=== PATIENT | female | born 1995 | race African-American/Black ===

== ENCOUNTER 2023-08-20 22:47 | Emergency (ER) | payer SELFPAY ==
[~2023-08-20] VITALS: Ht 172.7 cm; Wt 51.0 kg
[2023-08-20 22:50] VITALS: BP 101/55; RESP 16; TEMP 98.4
[2023-08-20 22:55] VITALS: PULSE 83
[2023-08-20 23:32] LABS: CLARITY URINE SL HAZY (CLEAR); COLOR URINE YELLOW (YELLOW); SPECIFIC GRAVITY URINE 1.028 (1.005-1.030)
[2023-08-20 23:33] LABS: GLUCOSE URINE NEGATIVE (NEGATIVE); KETONES URINE TRACE (NEGATIVE); LEUKOCYTE ESTERASE URINE TRACE (NEGATIVE); NITRITE URINE NEGATIVE (NEGATIVE); OCCULT BLOOD URINE NEGATIVE (NEGATIVE); PROTEIN URINE NEGATIVE (NEGATIVE)
[2023-08-20 23:40] LABS: BACTERIA URINE TRACE; RBC URINE 0-2 /hpf (0-2); SQUAMOUS EPITHELIAL CELL URINE 1+ /lpf (RARE/1+); WBC URINE 0-2 /hpf (0-2)
[2023-08-20] MEDS ORDERED: DOXY100C5 MT (23:45)
[2023-08-20] MEDS ORDERED: MINE50OI TP (23:47)
[2023-08-21] MEDS: CEFTRIAXONE SODIUM 500MG VIAL IM ONE (00:25)
[2023-08-21] MEDS: LIDOCAINE HCL/PF 1% 10 MG/ML 5ML VIAL INFIL ONE (00:25)
[2023-08-22 14:13] LABS: CHLAMYDIA TRACHOMATIS NAA Negative (Negative); NEISSERIA GONORRHOEAE NAA Negative (Negative)
== END 2023-08-21 00:33 | disposition home or self-care (01) ==
LOC: ER 22:47
DX: Z20.2 Contact with and (suspected) exposure to infections with a predominantly sexual mode of transmission (principal); F41.9 Anxiety disorder, unspecified; F32.A Depression, unspecified
CPT/HCPCS: 99283; 87491; 87591; 81003; 81025; 96372; J0696; J3490

== ENCOUNTER 2023-11-17 21:21 | Emergency (ER) | payer MEDICAID ==
[~2023-11-17] VITALS: Ht 172.7 cm; Wt 66.0 kg
[~2023-11-17 21:21] MED LIST: DOXY100C5 MT; MINE50OI TP
[2023-11-17 21:25] VITALS: O2SAT 100
[2023-11-17 21:36] VITALS: O2SAT 100
[2023-11-17 22:01] LABS: CLARITY URINE CLOUDY (CLEAR); COLOR URINE YELLOW (YELLOW); GLUCOSE URINE NEGATIVE (NEGATIVE); KETONES URINE TRACE (NEGATIVE); LEUKOCYTE ESTERASE URINE TRACE (NEGATIVE); NITRITE URINE NEGATIVE (NEGATIVE); OCCULT BLOOD URINE 3+ (NEGATIVE); PROTEIN URINE TRACE (NEGATIVE)
[2023-11-17 22:21] LABS: BACTERIA URINE TRACE; RBC URINE TNTC /hpf (0-2); SQUAMOUS EPITHELIAL CELL URINE RARE /lpf (RARE/1+); WBC URINE 0-2 /hpf (0-2)
[2023-11-17] MEDS: IBUPROFEN 600MG TABLET PO ONE (23:06)
[2023-11-17 23:15] LABS: BASOPHILS % 0.5 % (0.0-2.0); EOSINOPHILS % 1.6 % (0.0-5.0); HEMATOCRIT. 33.8 % (36.0-48.0); HEMOGLOBIN. 10.6 g/dL (12.0-16.0); LYMPHOCYTES % 46.2 % (20.0-50.0); MEAN CORPUSCULAR HEMOGLOBIN 25.5 pg (28.0-32.0); MEAN CORPUSCULAR HGB CONC 31.4 g/dL (31.0-37.0); MEAN CORPUSCULAR VOLUME 81.3 fL (81.0-99.0); MEAN PLATELET VOLUME 8.9 fl (7.4-10.4); MONOCYTES % 8.1 % (2.0-8.0); NEUTROPHILS % 43.6 % (40.0-76.0); PLATELET 220 x1000/uL (130-400); RED BLOOD CELL COUNT 4.16 mill/uL (4.2-5.4); RED CELL DISTRIBUTION WIDTH 18.8 % (11.6-14.6); WHITE BLOOD COUNT 3.6 x1000/uL (4.5-11.0)
[2023-11-17 23:19] LABS: CHLORIDE 106 mEq/L (98-107); SODIUM 139 mEq/L (136-145)
[2023-11-17 23:20] LABS: CALCIUM 9.6 mg/dL (8.7-10.4); CARBON DIOXIDE 30 mEq/L (21-32)
[2023-11-17 23:25] LABS: CREATININE 0.8 mg/dL (0.6-1.0); GLUCOSE 85 mg/dL (70-105); UREA NITROGEN BLOOD 9 mg/dL (9-23)
[2023-11-17 23:27] LABS: ALANINE AMINOTRANSFERASE 7 IU/L (10-49); ALBUMIN 4.6 g/dL (3.2-4.8); ASPARTATE AMINOTRANSFERASE 17 IU/L (<34); BILIRUBIN TOTAL 0.4 mg/dL (0.1-1.0); PROTEIN TOTAL 7.5 g/dL (6.0-8.3)
[2023-11-18] MEDS ORDERED: IBUP-2028 MT (00:11)
[2023-11-18] MEDS ORDERED: FERR325T6 MT (00:21)
[2023-11-18 00:30] VITALS: BP 119/85; PULSE 71; RESP 17; TEMP 36.28068
== END 2023-11-18 00:39 | disposition home or self-care (01) ==
LOC: ER 21:21
DX: N93.8 Other specified abnormal uterine and vaginal bleeding (principal); Z79.899 Other long term (current) drug therapy
CPT/HCPCS: 36415; 76856; 80053; 81003; 81025; 85025; 86850; 86900; 99284

== ENCOUNTER 2024-05-14 21:00 | Emergency (ER) | payer MEDICAID ==
[~2024-05-14] VITALS: Ht 172.7 cm; Wt 66.0 kg
[~2024-05-14 21:00] MED LIST changes: +FERR325T6 MT; +IBUP-2028 MT
[2024-05-14 21:03] VITALS: O2SAT 99
[2024-05-14 21:08] VITALS: BP 145/96; PULSE 96; RESP 12; TEMP 36.8; O2SAT 98
[2024-05-14] MEDS: ACETAMINOPHEN 325MG TABLET PO ONE (22:33)
[2024-05-14] MEDS ORDERED: CEPH500C2 MT (23:15)
== END 2024-05-14 23:26 | disposition home or self-care (01) ==
LOC: ER 21:00
DX: R23.8 Other skin changes (principal); L02.01 Cutaneous abscess of face
CPT/HCPCS: 99283

== ENCOUNTER 2024-05-21 01:06 | Emergency (ER) | payer MEDICAID ==
[~2024-05-21] VITALS: Ht 172.7 cm; Wt 65.9 kg
[~2024-05-21 01:06] MED LIST changes: +CEPH500C2 MT
[2024-05-21 01:13] VITALS: O2SAT 100
[2024-05-21 01:17] VITALS: BP 122/67; PULSE 75; RESP 20; TEMP 36.9; O2SAT 99
[2024-05-21 01:38] LABS: CLARITY URINE CLOUDY (CLEAR); COLOR URINE YELLOW (YELLOW); GLUCOSE URINE NEGATIVE (NEGATIVE); KETONES URINE TRACE (NEGATIVE); LEUKOCYTE ESTERASE URINE 1+ (NEGATIVE); NITRITE URINE NEGATIVE (NEGATIVE); OCCULT BLOOD URINE NEGATIVE (NEGATIVE); PROTEIN URINE 1+ (NEGATIVE); SPECIFIC GRAVITY URINE 1.043 (1.005-1.030)
[2024-05-21] MEDS: CEFTRIAXONE SODIUM 500MG VIAL IM ONE (02:08)
[2024-05-21] MEDS ORDERED: DOXY100C5 MT (02:28)
[2024-05-21 02:37] LABS: BACTERIA URINE TRACE; RBC URINE 0-2 /hpf (0-2); SQUAMOUS EPITHELIAL CELL URINE 1+ /lpf (RARE/1+)
== END 2024-05-21 02:34 | disposition home or self-care (01) ==
LOC: ER 01:06
DX: Z11.3 Encounter for screening for infections with a predominantly sexual mode of transmission (principal); Z79.899 Other long term (current) drug therapy
CPT/HCPCS: 99283; 86592; 81003; 81025; 36415; 96372; J0696

== ENCOUNTER 2024-07-04 21:19 | Emergency (ER) | payer MEDICAID ==
[~2024-07-04] VITALS: Ht 172.7 cm; Wt 65.7 kg
[2024-07-04 21:56] VITALS: O2SAT 100
[2024-07-04 22:51] LABS: CLARITY URINE CLOUDY (CLEAR); COLOR URINE YELLOW (YELLOW); GLUCOSE URINE NEGATIVE (NEGATIVE); KETONES URINE TRACE (NEGATIVE); LEUKOCYTE ESTERASE URINE 2+ (NEGATIVE); NITRITE URINE NEGATIVE (NEGATIVE); OCCULT BLOOD URINE NEGATIVE (NEGATIVE); PROTEIN URINE TRACE (NEGATIVE); SPECIFIC GRAVITY URINE 1.032 (1.005-1.030)
[2024-07-04 23:07] LABS: BACTERIA URINE 1+; RBC URINE 0-2 /hpf (0-2); SQUAMOUS EPITHELIAL CELL URINE 1+ /lpf (RARE/1+)
[2024-07-04] MEDS: CEFTRIAXONE SODIUM 500MG VIAL IM ONE (23:36)
[2024-07-04] MEDS: LIDOCAINE HCL/PF 1% 10 MG/ML 5ML VIAL INFIL ONE (23:36)
[2024-07-05] MEDS ORDERED: NITR100C MT (00:18)
[2024-07-05] MEDS ORDERED: DOXY100C5 MT (00:18)
[2024-07-05 01:04] VITALS: BP 110/77; PULSE 71; RESP 17; TEMP 36.8; O2SAT 100
[2024-07-07 04:09] LABS: CHLAMYDIA TRACHOMATIS NAA Negative (Negative); NEISSERIA GONORRHOEAE NAA Negative (Negative)
== END 2024-07-05 01:20 | disposition home or self-care (01) ==
LOC: ER 21:33
DX: Z11.3 Encounter for screening for infections with a predominantly sexual mode of transmission (principal)
CPT/HCPCS: 99283; 87491; 87591; 81003; 96372; J0696; J2003

== ENCOUNTER 2024-07-07 23:14 | Emergency (ER) | payer MEDICAID ==
[~2024-07-07] VITALS: Ht 172.7 cm; Wt 65.0 kg
[~2024-07-07 23:14] MED LIST changes: +NITR100C MT
[2024-07-07 23:40] VITALS: O2SAT 99
[2024-07-08] MEDS ORDERED: ACET-2708 MT (00:53)
[2024-07-08 01:03] VITALS: BP 109/68; PULSE 80; RESP 12; TEMP 36.8; O2SAT 99
== END 2024-07-08 01:05 | disposition home or self-care (01) ==
LOC: ER 23:14
DX: S09.90XA Unspecified injury of head, initial encounter (principal); Z79.899 Other long term (current) drug therapy; V49.40XA Driver injured in collision with unspecified motor vehicles in traffic accident, initial encounter; Y93.89 Activity, other specified; Y92.89 Other specified places as the place of occurrence of the external cause; Y99.8 Other external cause status
CPT/HCPCS: 99284

== ENCOUNTER 2024-08-18 21:56 | Emergency (ER) | payer MEDICAID ==
[~2024-08-18] VITALS: Ht 174 cm; Wt 65.4 kg
[~2024-08-18 21:56] MED LIST changes: +ACET-2708 MT
[2024-08-18 21:59] VITALS: O2SAT 100
[2024-08-18] MEDS ORDERED: LIDOCAINE HCL 1% 20ML VIAL INFIL ONE (23:15)
[2024-08-18] MEDS: CEFTRIAXONE SODIUM 500MG VIAL IM ONE (23:46)
[2024-08-19 00:28] LABS: CLARITY URINE CLEAR (CLEAR); COLOR URINE YELLOW (YELLOW); GLUCOSE URINE NEGATIVE (NEGATIVE); KETONES URINE TRACE (NEGATIVE); LEUKOCYTE ESTERASE URINE NEGATIVE (NEGATIVE); NITRITE URINE NEGATIVE (NEGATIVE); OCCULT BLOOD URINE NEGATIVE (NEGATIVE); PH URINE 6.5 (4.5-8.0); PROTEIN URINE NEGATIVE (NEGATIVE); SPECIFIC GRAVITY URINE 1.032 (1.005-1.030)
[2024-08-19] MEDS ORDERED: FLUC150T46 MT (00:54)
[2024-08-19] MEDS ORDERED: METR-167 MT (00:54)
[2024-08-19] MEDS ORDERED: DOXY100C5 MT (00:54)
[2024-08-19 01:17] VITALS: BP 116/86; PULSE 67; RESP 18; TEMP 36.9; O2SAT 100
[2024-08-21 06:09] LABS: CHLAMYDIA TRACHOMATIS NAA Negative (Negative); NEISSERIA GONORRHOEAE NAA Negative (Negative)
== END 2024-08-19 01:20 | disposition home or self-care (01) ==
LOC: ER 21:56
DX: N89.8 Other specified noninflammatory disorders of vagina (principal); Z20.2 Contact with and (suspected) exposure to infections with a predominantly sexual mode of transmission; Z79.899 Other long term (current) drug therapy
CPT/HCPCS: 99284; 81003; 81025; 96372; 87491; 87591; 87210; J0696; J2003; 99283